=== PATIENT | male | born 1960 | race Caucasian/White ===

== ENCOUNTER → 2018-02-18 | Outpatient (CLI) | payer OTHER ==
[~2018-02-18] MED LIST: DEPO METHYLPREDNISOLONE 80 MG/ML SDV ONE; IOPAMIDOL (ISOVUE 370) 100 ML BTL IV ONE; LIDOCAINE 1% 300 MG/30 ML SDV ONE; ROPIVACAINE HCL 150 MG/30 ML INJ ONE
== END ==
LOC: FIMAGING 10:29
PROVIDERS: ATTEND Orthopaedic Surgery
PROC: 3E0U33Z Introduction of Anti-inflammatory into Joints, Percutaneous Approach (ICD-10-PCS; principal; 2018-02-18)
PROC: 3E0U3BZ Introduction of Anesthetic Agent into Joints, Percutaneous Approach (ICD-10-PCS; principal; 2018-02-18)
DX: M16.11 Unilateral primary osteoarthritis, right hip (principal)
CPT/HCPCS: J1040; J2795; Q9967

== ENCOUNTER → 2018-07-13 | Outpatient (CLI) | payer OTHER ==
[~2018-07-13] MED LIST changes: -LIDOCAINE 1% 300 MG/30 ML SDV ONE
== END ==
LOC: FIMAGING 09:45
PROVIDERS: ATTEND Orthopaedic Surgery
PROC: 3E0U3BZ Introduction of Anesthetic Agent into Joints, Percutaneous Approach (ICD-10-PCS; principal; 2018-07-13)
DX: M16.11 Unilateral primary osteoarthritis, right hip (principal)
CPT/HCPCS: J1040; J2795; Q9967